=== PATIENT | male | born 1960 | race Caucasian/White ===

== ENCOUNTER 2020-09-08 13:08 | Inpatient (IN) | payer OTHER ==
[~2020-09-08] VITALS: Ht 172.7 cm; Wt 93.8 kg
[2020-09-08] MEDS ORDERED: dilTIAZem 25 MG/5 ML VIAL IV ONE (13:30)
[2020-09-08] MEDS ORDERED: ASPirin 81 mg TAB PO ONE ×2 (13:30)
[2020-09-08 13:49] LABS: Basophils # (auto) 0 10 ^3/uL (0-0.2); Basophils % (auto) 0.7 % (0.0-2.0); Eosinophils # (auto) 0.1 10 ^3/uL (0-0.8); Eosinophils % (auto) 1.2 % (0.0-7.0); Hematocrit 46.4 % (41.0-53.0); Hemoglobin 16.2 g/dL (13.5-17.5); Lymphocytes # (auto) 1.9 10 ^3/uL (0.4-5.4); Lymphocytes % (auto) 27.6 % (10.0-50.0); Mean Corpuscular Hemoglobin 32.3 pg (28.0-32.0); Mean Corpuscular Hgb Conc. 34.9 g/dL (32.0-36.0); Mean Corpuscular Volume 92.5 fL (80.0-100.0); Monocytes # (auto) 0.9 10 ^3/uL (0-1.3); Monocytes % (auto) 12.4 % (0.0-12.0); Neutrophils # (auto) 4.1 10 ^3/uL (1.6-8.6); Neutrophils % (auto) 58.1 % (37.0-80.0); Nucleated Red Blood Cells % 0.1 %; Red Blood Cells 5.02 10^6/uL (4.5-5.90); Red Cell Distribution Width 13.8 % (11.8-14.3)
[2020-09-08 14:14] LABS: Calcium 8.6 mg/dL (8.5-10.1); Chloride 109 mmol/L (98-107); Potassium 4.1 mmol/L (3.5-5.1); Sodium 139 mmol/L (136-145)
[2020-09-08 14:23] LABS: Alanine Aminotransferase 61 U/L (16-61); Albumin 3.9 g/dL (3.4-5.0); Alkaline Phosphatase 71 U/L (45-117); Anion Gap 8 (5-15); Aspartate Aminotransferase 47 U/L (15-37); BUN/Creatinine Ratio 18.1; Bilirubin, Total 0.8 mg/dL (0.2-1.0); Blood Urea Nitrogen 15 mg/dL (7-18); Carbon Dioxide 22 mmol/L (21-32); GFR African American 122 mL/min; GFR Non-African American 101 mL/min; Glucose 107 mg/dL (74-106); Total Protein 7.7 g/dL (6.4-8.2)
[2020-09-08 15:58] LABS: Urine WBC None Seen /hpf (0 - 3)
[2020-09-08 16:38] LABS: Urine Bacteria NONE SEEN /hpf (None Seen); Urine Blood TRACE /uL (Negative)
[2020-09-08] MEDS ORDERED: ONDANSETRON HCL 4 MG/2 ML VIAL IV PRN (17:15)
[2020-09-08] MEDS ORDERED: NITROGLYCERIN 0.4 MG SL TAB SL PRN (17:15)
[2020-09-08] MEDS ORDERED: ACETAMINOPHEN 500 MG TAB PO PRN (17:15)
[2020-09-08] MEDS ORDERED: MORPHINE SULFATE INJECTION 2 MG/ML SYRG IV PRN (17:15)
[2020-09-08 17:38] LABS: Cholesterol 221 mg/dL (< 200); Triglycerides 196 mg/dL (< 150)
[2020-09-08 17:41] LABS: HDL Cholesterol 116 mg/dL (40-59); LDL Cholesterol 73 mg/dL (< 100)
[2020-09-08] MEDS: HYDROcodone-ACET 7.5/325MG TAB PO PRN (17:43)
[2020-09-08] MEDS: METOPROLOL SUCCINATE XL 50 MG TAB PO SCH (17:43)
[2020-09-08] MEDS: FOLIC ACID 1 MG, MULTIPLE VITAMIN 10 ML, MAGNESIUM SULF SDV 50% 8 MEQ, THIAMINE INJ 100... INJ SCH ×5 (17:59)
[2020-09-08] MEDS ORDERED: TEMAZEPAM 15 MG CAP PO PRN ×4 (18:00→22:00)
[2020-09-08 19:39] LABS: Amphetamine Screen, Urine NEGATIVE (NEGATIVE); Barbiturate Scree,Urine NEGATIVE (NEGATIVE); Benzodiazephine Screen, Urine NEGATIVE (NEGATIVE); Cannabinoid Screen, Urine NEGATIVE (NEGATIVE); Cocaine Screen, Urine NEGATIVE (NEGATIVE); Opiate Scree,Urine NEGATIVE (NEGATIVE); Phencyclidine Screen, Urine NEGATIVE (NEGATIVE)
[2020-09-08] MEDS: BACLOFEN 10 MG TAB PO PRN (21:37)
[2020-09-08 22:00] VITALS: BP 123/75
[2020-09-09 05:00] VITALS: BP 116/79
[2020-09-09] MEDS ORDERED: ADENOSINE 76 MG in GIVE UN-DILUTED 0 ML IV STA (08:23)
[2020-09-09 10:12] VITALS: BP 147/80
[2020-09-09] MEDS: ASPirin 81 mg TAB PO SCH (11:46)
[2020-09-09] MEDS: HYDROcodone-ACET 7.5/325MG TAB PO PRN ×2 (11:46→22:12)
[2020-09-09] MEDS: METOPROLOL SUCCINATE XL 50 MG TAB PO SCH (11:47)
[2020-09-09 12:19] LABS: BUN/Creatinine Ratio 23.2; Calcium 8.5 mg/dL (8.5-10.1); Magnesium 2.5 mg/dL (1.6-2.6)
[2020-09-09] MEDS: BACLOFEN 10 MG TAB PO PRN (12:43)
[2020-09-09] MEDS: FOLIC ACID 1 MG, MULTIPLE VITAMIN 10 ML, MAGNESIUM SULF SDV 50% 8 MEQ, THIAMINE INJ 100... INJ SCH ×5 (14:28)
[2020-09-09 17:00] VITALS: BP 120/79
[2020-09-09 21:56] VITALS: BP 115/78
[2020-09-09] MEDS ORDERED: ATORVASTATIN 20 MG TAB PO SCH (22:00)
[2020-09-10 05:52] VITALS: BP 114/75
[2020-09-10 08:30] VITALS: BP 115/79
[2020-09-10] MEDS: ASPirin 81 mg TAB PO SCH (09:36)
[2020-09-10] MEDS: METOPROLOL SUCCINATE XL 50 MG TAB PO SCH (09:37)
[2020-09-10 11:51] VITALS: BP 115/79
[2020-09-10] MEDS: FOLIC ACID 1 MG, MULTIPLE VITAMIN 10 ML, MAGNESIUM SULF SDV 50% 8 MEQ, THIAMINE INJ 100... INJ SCH ×5 (12:00)
[2020-09-10 13:00] VITALS: BP 123/80
== END 2020-09-10 13:30 | disposition home or self-care (01) | DRG 309 ==
LOC: ER 13:08 → TELE 17:01 → TELE-CENTR 20:28
PROVIDERS: ADMIT Nurse Practitioner Acute Care; ATTEND Internal Medicine
DX: I48.0 Paroxysmal atrial fibrillation (principal); D68.59 Other primary thrombophilia; E66.9 Obesity, unspecified; F10.20 Alcohol dependence, uncomplicated; Z20.822 Contact with and (suspected) exposure to COVID-19; E78.5 Hyperlipidemia, unspecified; I34.9 Nonrheumatic mitral valve disorder, unspecified; I10 Essential (primary) hypertension; Z79.82 Long term (current) use of aspirin; Z91.19 Patient's noncompliance with other medical treatment and regimen; Z68.31 Body mass index [BMI] 31.0-31.9, adult; Z71.41 Alcohol abuse counseling and surveillance of alcoholic
CPT/HCPCS: 36415; 71045; 78452; 80048; 80053; 80061; 80307; 81001; 83735; 84443; 84484; 85025; 85652; 86141; 87426; 93005; 93017; 93306; 96365; 96366; G0378; J0153